=== PATIENT | female | born 1975 | race Caucasian/White ===

== ENCOUNTER 2017-09-07 04:50 | Emergency (ER) | payer SELFPAY ==
[~2017-09-07] VITALS: Ht 160 cm; Wt 88.8 kg
[~2017-09-07 04:50] MED LIST: AMOXICILLIN500 MG OR; CEPHALEXIN500 MG PO; CIPROFLOXACN500 MG PO; METRONIDAZOL500 MG PO; PAROXETINE20 MG PO; ROBITUSSIN AC10 ML OR; ROBITUSSIN AC10 ML PO; ULTRAM50 M1 PO; ZOFRAN ODT4 MG OR
[2017-09-07 05:41] LABS: URINE BILIRUBIN - DIPSTICK NEGATIVE (NEGATIVE); URINE BLOOD DIPSTICK NEGATIVE (NEGATIVE); URINE COLOR YELLOW; URINE GLUCOSE - DIPSTICK NEGATIVE (NEGATIVE); URINE KETONE NEGATIVE (NEGATIVE); URINE LEUK ESTERASE NEGATIVE (NEGATIVE); URINE NITRITE - DIPSTICK NEGATIVE (Negative); URINE PH 5.5 (4.5-8.0); URINE PROTEIN - DIPSTICK NEGATIVE (NEG-TRACE); URINE SPECIFIC GRAVITY >=1.030; URINE UROBILINOGEN - DIPSTICK 0.2 E.U./dL (0.2)
[2017-09-07 06:13] LABS: URINE CLARITY HAZY
[2017-09-07] MEDS ORDERED: LORTAB 1010 MG PO (06:40)
[2017-09-07] MEDS ORDERED: NAPROSYN500 MG PO (06:40)
[2017-09-07] MEDS ORDERED: FLEXERIL PO (06:40)
[2017-09-07 06:48] VITALS: BP 106/69
== END 2017-09-07 06:58 | disposition home or self-care (01) | DRG 552 ==
LOC: ED 04:50
PROVIDERS: Emergency Medicine
DX: M54.5 Low back pain (principal); M47.816 Spondylosis without myelopathy or radiculopathy, lumbar region; X50.0XXA Overexertion from strenuous movement or load, initial encounter; Y93.9 Activity, unspecified; Y92.9 Unspecified place or not applicable; M62.830 Muscle spasm of back